=== PATIENT | male | born 1960 | race Two or more races ===

== ENCOUNTER 2020-07-07 12:07 | Inpatient (IN) | payer MEDICARE ==
[~2020-07-07] VITALS: Ht 170.2 cm; Wt 71.3 kg
[2020-07-07] MEDS ORDERED: SODIUM CHLORIDE FLUSH 10ML SYR IVF ONE (12:30)
[2020-07-07 12:45] LABS: TROPONIN I < 0.015 ng/mL (0.000-0.045)
[2020-07-07] MEDS ORDERED: DEXAMETHASONE 4 MG/ML, 1ML IVPush ONE (13:58)
[2020-07-07] MEDS ORDERED: DEXAMETHASONE 4 MG/ML, 1ML ONE ×2 (14:06→14:07)
[2020-07-07] MEDS ORDERED: ENALAPRILAT 1.25 MG/ML, 2ML IVPush PRN (15:30)
[2020-07-07] MEDS ORDERED: LABETALOL 5MG/ML, 20ML IVPush PRN (15:30)
[2020-07-07] MEDS ORDERED: LORazepam 2 MG/ML, 1ML IVPush PRN (15:30)
[2020-07-07] MEDS ORDERED: POLYETHYLENE GLYCOL 17 GM PACKET PO PRN (15:30)
[2020-07-07] MEDS ORDERED: ONDANSETRON 2MG/ML, 2ML IVPush PRN (15:30)
[2020-07-07] MEDS ORDERED: ACETAMINOPHEN 325 MG TABLET PO PRN (15:30)
[2020-07-07] MEDS ORDERED: BISACODYL 10 MG SUPP PR PRN (15:30)
[2020-07-07] MEDS: PLEASE ENTER ALLERGIES MC SCH ×2 (16:00→20:47)
[2020-07-07] MEDS: POTASSIUM CHLORIDE 20 MEQ, MAGNESIUM SULFATE 1 GM, THIAMINE 200 MG, FOLIC ACID 1 MG, MV... IV SCH (16:50)
[2020-07-07] MEDS: LEVETIRACETAM 1,000 MG in SODIUM CHLORIDE 0.9% 100 ML IV SCH (16:50)
[2020-07-07] MEDS ORDERED: DEXAMETHASONE 4 MG/ML, 1ML IVPush SCH (19:30)
[2020-07-07] MEDS: DEXAMETHASONE 4 MG/ML, 1ML IVPush SCH (20:03)
[2020-07-08] MEDS: DEXAMETHASONE 4 MG/ML, 1ML IVPush SCH ×2 (01:34→08:51)
[2020-07-08 04:00] VITALS: BP 106/57
[2020-07-08] MEDS: LEVETIRACETAM 1,000 MG in SODIUM CHLORIDE 0.9% 100 ML IV SCH (04:08)
[2020-07-08 05:24] LABS: ALANINE AMINOTRANSFERASE 19 U/L (12-78); ALBUMIN 2.9 g/dL (3.4-5.0); ANION GAP 7 mmol/L (5-15); CALCIUM 9.1 mg/dL (8.5-10.1); CHLORIDE 117 mmol/L (98-107); CREATININE 0.88 mg/dL (0.7-1.3)
[2020-07-08 05:35] LABS: ALKALINE PHOSPHATASE 80 U/L (45-117); BILIRUBIN,TOTAL 0.9 mg/dL (0.2-1.0)
[2020-07-08 05:42] LABS: BASOPHILS % (AUTO) 0 % (0-1); EOSINOPHILS % (AUTO) 0 % (1-7); LYMPHOCYTES % (AUTO) 12 % (22-44); MEAN CORPUSCULAR HEMOGLOBIN 33.4 pg (27.5-34.5); MEAN CORPUSCULAR HGB CONC 33.1 g/dL (33.2-36.2); MONOCYTES % (AUTO) 2 % (2-9); NEUTROPHILS % (AUTO) 87 % (42-75); PLATELET COUNT 129 x10^3/uL (130-400); RED CELL DISTRIBUTION WIDTH 13.1 % (9.4-14.8)
[2020-07-08 06:43] LABS: MD SCAN
[2020-07-08] MEDS: SENNA/DOCUSATE TABLET PO SCH (08:51)
--- NOTE | 2020-07-08 09:23 | NUR ---
D/C REC: ISABELAU Addendum: 07/08/20 at 0923 by Roberta ROJAS Amended: Links added.
[2020-07-08] MEDS ORDERED: GADOTERATE 10 MMOL/20 ML SYR ONE (15:10)
[2020-07-08] MEDS: POTASSIUM CHLORIDE 20 MEQ, MAGNESIUM SULFATE 1 GM, THIAMINE 200 MG, FOLIC ACID 1 MG, MV... IV SCH (17:03)
[2020-07-09] VITALS (7 sets, daily range): BP systolic 126–166; BP diastolic 76–90
[2020-07-09] MEDS: SENNA/DOCUSATE TABLET PO SCH (09:00)
[2020-07-09] MEDS: INSULIN LISPRO 100 UNITS/ML, PEN SQ-INSULIN SCH ×3 (11:00→20:28)
[2020-07-09] MEDS: POTASSIUM CHLORIDE 20 MEQ, MAGNESIUM SULFATE 1 GM, THIAMINE 200 MG, FOLIC ACID 1 MG, MV... IV SCH (18:28)
[2020-07-10] VITALS (11 sets, daily range): BP systolic 138–167; BP diastolic 78–95
[2020-07-10] MEDS: INSULIN LISPRO 100 UNITS/ML, PEN SQ-INSULIN SCH ×4 (07:00→20:40)
[2020-07-10] MEDS: SENNA/DOCUSATE TABLET PO SCH (07:28)
[2020-07-10] MEDS ORDERED: LISINOPRIL 10 MG TABLET PO SCH ×2 (09:00→21:00)
[2020-07-11 01:30] VITALS: BP 142/77
[2020-07-11] MEDS: INSULIN LISPRO 100 UNITS/ML, PEN SQ-INSULIN SCH ×4 (07:00→21:18)
[2020-07-11 07:04] VITALS: BP 150/84
[2020-07-11] MEDS: SENNA/DOCUSATE TABLET PO SCH (07:52)
[2020-07-11] MEDS: LISINOPRIL 20 MG TABLET PO SCH ×2 (07:53→20:07)
[2020-07-11 12:22] VITALS: BP 137/77
[2020-07-11 18:49] VITALS: BP 142/72
[2020-07-12 01:17] VITALS: BP 157/98
[2020-07-12] MEDS: INSULIN LISPRO 100 UNITS/ML, PEN SQ-INSULIN SCH ×2 (07:00→11:00)
[2020-07-12 07:27] VITALS: BP 147/73
[2020-07-12] MEDS ORDERED: LISI-170 PO (07:37)
[2020-07-12] MEDS ORDERED: AMLO5TAB4 PO (07:37)
[2020-07-12] MEDS ORDERED: HYDR-3343 PO (07:37)
[2020-07-12] MEDS ORDERED: METF500T PO (07:40)
[2020-07-12] MEDS ORDERED: metFORMIN 500 MG TABLET PO SCH (08:00)
[2020-07-12] MEDS ORDERED: ATOR20TA86 PO (08:46)
[2020-07-12] MEDS: SENNA/DOCUSATE TABLET PO SCH (08:50)
[2020-07-12] MEDS: LISINOPRIL 20 MG TABLET PO SCH (08:50)
[2020-07-12] MEDS ORDERED: AMLODIPINE 5 MG TABLET PO SCH (09:00)
[2020-07-12] MEDS ORDERED: FLU VACC QS2020-21(6MOS UP)/PF 60MCG/0.5 ML SYR IM-VACC ONE (09:30)
[2020-07-12 13:50] VITALS: BP 148/89
== END 2020-07-12 16:10 | DRG 64 ==
LOC: ED 12:33 → CCU 14:07 → 4WST 07-09 14:06
PROVIDERS: ADMIT Internal Medicine; ATTEND Hospitalist
DX: I61.0 Nontraumatic intracerebral hemorrhage in hemisphere, subcortical (principal); G93.5 Compression of brain; G81.91 Hemiplegia, unspecified affecting right dominant side; E85.4 Organ-limited amyloidosis; D69.59 Other secondary thrombocytopenia; D75.89 Other specified diseases of blood and blood-forming organs; E11.65 Type 2 diabetes mellitus with hyperglycemia; E87.6 Hypokalemia; F10.10 Alcohol abuse, uncomplicated; I10 Essential (primary) hypertension; Z72.0 Tobacco use
CPT/HCPCS: 36415; 70450; 70553; 80053; 82962; 83036; 83735; 84100; 84443; 84484; 85025; 87081; 90686; 93005; 96374; 99285; G0378; J1100; J1953; J3411; J3475; J3480; 92523-GN; A9575; J1815; J7030